=== PATIENT | male | born 1980 | race Caucasian/White ===

== ENCOUNTER 2020-09-28 12:01 | Emergency (ER) | payer BC, SELFPAY ==
--- NOTE | ~2020-09-28 | CT_ITS ---
EXAMINATION: CT abdomen pelvis w con DATE: 09/28/2020 13:21 INDICATION: Generalized abdominal pain. Constipation. TECHNIQUE: Computed tomography (CT) of the abdomen and pelvis was performed with 100 mL Omnipaque 350 intravenous contrast. Automated exposure control and iterative reconstruction technique were employe d. The dose-length product was 339.94 mGy-cm. COMPARISON: None. FINDINGS: The visualized portions of the lung bases demonstrate mild atelectasis. No pleural effusion . The heart size is normal. No pericardial effusion. There is a 2.7 cm hyperenhancing mass in segment V of the liver. The gallbladder is absent. The spleen, pancreas, adrenal glands, and right kidney ar e normal. There are cysts in left kidney measuring up to 7 mm. There is a large volume of stool in th e colon. There is desiccated stool in much of the distal small bowel. There are dilated fluid-filled loops of proximal small bowel. The stomach is distended and filled with fluid. There is fluid in the esophagus. There are no pathologically enlarged lymph nodes. There is no free intraperitoneal fluid. There is a healing right 12th rib fracture. There is an old ununited fracture of left L4 transverse p rocess. IMPRESSION: 1. Stool impaction. 2. 2.7 cm hyperenhancing liver mass. In the absence of known malignancy or chronic liver disease, thi s finding is likely a hemangioma or focal nodular hyperplasia. Reviewed, dictated and finalized at location A. [facility] [employer] IMPRESSION: 1. Stool impaction. 2. 2.7 cm hyperenhancing liver mass. In the absence of known malignancy or optical assistant connor liver disease, this finding is likely a hemangioma or focal nodular hyperpl addie.
[2020-09-28 12:03] VITALS: BP 148/94; PULSE 86; RESP 22; TEMP 36.6; O2SAT 100
--- NOTE | 2020-09-28 12:15 | PC.NURSE ---
Pt to ED with complaints of abdominal pain, nausea, vomiting, and constipation x1 week.
[2020-09-28 12:29] LABS: Basophils Absolute Auto 0.1 K/mm3 (0.0-0.1); Basophils Percent Auto 0.7 % (0.2-1.2); Eosinophils Absolute Auto 0.3 K/mm3 (0-0.3); Eosinophils Percent Auto 2.6 % (0-4.4); Hematocrit 39.1 % (42.0-52.0); Hemoglobin 12.8 g/dL (14.0-18.0); Immature Granulocyte Absolute 0.03 K/mm3 (0.00-0.031); Immature Granulocyte Percent A 0.3 % (0-0.5); Lymphocytes Absolute Auto 2.15 K/mm3 (0.9-3.2); Lymphocytes Percent Auto 20.7 % (18.3-44.2); Mean Corpuscular HGB Conc 32.7 g/dl (32-36); Mean Corpuscular Volume 91.6 fl (80-100); Mean Platelet Volume 8.9 fl (7.4-10.4); Monocytes Absolute Auto 0.7 K/mm3 (0.1-0.6); Monocytes Percent Auto 7.1 % (2.6-8.5); Neutrophils Absolute Auto 7.1 K/mm3 (1.3-6.7); Neutrophils Percent Auto 68.6 % (45.5-73.1); Platelet Count Result 364 k/mm3 (150-375); Red Blood Count 4.27 M/mm3 (4.6-6.20); Red Cell Distribution Width 13.9 % (11.5-14.5); White Blood Count 10.4 K/mm3 (4.5-10.0)
--- NOTE | 2020-09-28 12:41 | ED.ABDPAIN ---
HPI - Abdominal Pain General Chief Complaint: Abdominal Pain Stated Complaint: abd pain Time Seen by Provider: 09/28/20 12:20 Source: patient Mode of arrival: ambulatory Limitations: no limitations History of Present Illness HPI narrative: Patient is a 39-year-old male complaining of abdominal pain, diffuse, 8 out of 10, dull, nonradiating started proximately 1 week ago accompanied by nausea, vomiting and constipation. Patient states he has not had a bowel movement for 1 week. Patient denies any chest pain, shortness of breath, GI bleeding, fever, chills or urinary symptoms. Related Data Home Medications Medication Instructions Recorded Confirmed Seroquel BID 09/28/20 Suboxone BID 09/28/20 Allergies Allergy/AdvReac Type Severity Reaction Status Date / Time No Known Allergies Allergy Verified 09/28/20 12:18 Review of Systems Review of Systems: All systems reviewed & are unremarkable except as noted in HPI and below Constitutional: Constitutional: Denies body ache(s), Denies chills, Denies excessive sweating, Denies fatigue, Denies fever(s), Denies headache(s), Denies lethargy, Denies malaise, Denies weakness and Denies weight loss Eyes: Eyes: Denies blurry vision, Denies change in vision and Denies loss of vision ENT: Denies dizziness, Denies ear discharge, Denies headache(s), Denies lip swelling, Denies epistaxis, Denies nasal congestion, Denies neck pain, Denies throat swelling and Denies tongue swelling Cardiovascular: Cardiovascular: Denies chest pain, Denies chest pain at rest, Denies chest pain with activity, Denies diaphoresis, Denies rapid heart rate, Denies edema, Denies irregular heart rhythm, Denies lightheadedness, Denies palpitations, Denies dyspnea and Denies dyspnea on exertion Respiratory: Respiratory: Denies chest congestion, Denies cough, Denies hemoptysis, Denies dyspnea and Denies dyspnea on exertion Gastrointestinal: Gastrointestinal: Denies melena, Denies hematochezia, Denies diarrhea and Denies hematemesis Musculoskeletal: Musculoskeletal: Denies abnormal gait, Denies deformity, Denies joint swelling, Denies limited range of motion, Denies neck pain and Denies numbness Neurologic: Denies Abnormal speech present, Denies abnormal gait, Denies confusion, Denies dizziness, Denies headache(s), Denies focal weakness, Denies loss of vision, Denies numbness, Denies Other visual disturbances, Denies Sensory deficit (Neuro) and Denies weakness Psychiatric: Psychiatric: Denies confusion, Denies depression, Denies auditory hallucinations, Denies homicidal ideation and Denies suicidal ideation Endocrine: Endocrine: Denies cold intolerance, Denies excessive sweating, Denies fatigue, Denies heat intolerance and Denies palpitations Hematologic/Lymphatic: Hematologic/Lymphatic: Denies easy bleeding and Denies easy bruising Allergic/Immunologic: Allergic/Immunologic: Denies lip swelling, Denies throat swelling and Denies tongue swelling Exam Const: General: cooperative, healthy appearing, comfortable, no acute distress, well developed, alert and awake; No confusion Orientation/consciousness: oriented to person, oriented to place, oriented to time, patient oriented x3 and No confusion Limitations: no limitations HENMT: Head: normal to inspection, normocephalic and atraumatic Ears: hearing grossly normal bilaterally, TM normal on the right and TM normal on the left General nose exam: Normal external nose present, Normal nares present and No nasal discharge present Face and sinus: normal facial exam Mouth: Yes Normal oral and palatal mucosa present, Yes lip normal, Yes tongue normal and Yes oropharynx normal Throat: posterior oropharynx normal, tonsils normal and uvula midline Eyes: General: appearance normal, both eyes and all related structures Pupils: Equal, round and reactive pupils present EOM: EOMs intact bilaterally Neck: Neck: normal visual inspection, full ROM, no lymphadenopathy and no meningeal signs
[2020-09-28] MEDS: SODIUM CHLORIDE 0.9% IV 1,000 ML 999 ML IV CONT (12:46)
[2020-09-28 12:47] VITALS: BP 145/90; PULSE 77; RESP 16; O2SAT 99
[2020-09-28 12:52] LABS: Alanine Aminotransferase 327 U/L (4-50); Albumin Level 4.1 g/dL (3.5-5.1); Alkaline Phosphatase 90 U/L (38-126); Anion Gap 5 mmol/L (8-16); Aspartate Amino Transferase 63 U/L (17-59); Bilirubin,Total 0.3 mg/dL (0.2-1.3); Blood Urea Nitrogen 19 mg/dL (9-20); Calcium 10.8 mg/dL (8.4-10.2); Carbon Dioxide 34 mmol/L (22-30); Chloride 98 mmol/L (98-107); Estimated CRCL calculation 85 ml/min; Estimated Glomerular Filt Rate > 60; Glucose 102 mg/dL (75-110); Lipase 71 U/L (23-300); Sodium 137 mmol/L (137-145)
--- NOTE | 2020-09-28 12:58 | PC.NURSE ---
Pt to CT.
[2020-09-28 13:35] VITALS: PULSE 72; RESP 16; O2SAT 98
[2020-09-28 14:18] LABS: Add Urine Microscopic? NO; Appearance Urine Clear (Clear); Bilirubin Urine Negative (Negative); Blood Urine Negative (Negative); Color Urine Yellow (Yellow); Glucose Urine UA Negative (Negative); Ketones Urine Negative (Negative); Leukocyte Esterase Ur Negative LEU/UL (Negative); Nitrate Urine Negative (Negative); Protein Urine Negative (Negative); Urobilinogen Urine Negative mg/dL (<2.0)
[2020-09-28 14:25] LABS: Specific Grav Ur 1.041 (1.001-1.035)
[2020-09-28 14:35] VITALS: BP 108/79; PULSE 74; RESP 16; O2SAT 97
[2020-09-28] MEDS: MAGNESIUM CITRATE 300 ML BTL PO (14:48)
--- NOTE | 2020-09-28 14:54 | PC.NURSE ---
Pharmacy called to send Colace and Mirilax.
[2020-09-28] MEDS: DOCUSATE SODIUM 100 MG CAPSULE 200 MG PO (14:57)
[2020-09-28] MEDS: polyethylene glycoL 3350 17 GM POWD.PACK PO (14:58)
--- NOTE | 2020-09-28 15:28 | PC.NURSE ---
Pt has had multiple large bowel movements. Pt report much relief of abdominal pain/bloating.
[2020-09-28 15:52] VITALS: BP 108/79; PULSE 79; RESP 15; O2SAT 98
== END 2020-09-28 15:53 | disposition home or self-care (01) ==
PROVIDERS: Emergency Provider Emergency Medicine; PCP Family Medicine
DX: K56.41 Fecal impaction (principal); R16.0 Hepatomegaly, not elsewhere classified; R11.2 Nausea with vomiting, unspecified
CPT/HCPCS: 36415; 74177; 80053; 81003; 83690; 85025; 96360; 99284; A9270; J7030; Q9967